=== PATIENT | male | born 1990 | race Asian ===

== ENCOUNTER 2022-09-09 11:27 | Inpatient (IN) | payer BC, SELFPAY ==
[~2022-09-09] VITALS: Ht 165.1 cm; Wt 67.0 kg
[2022-09-09] MEDS: NICOTINE 21MG/24HR 1 EA TRANSDERMAL TD SCH (09:00)
[2022-09-09 12:28] LABS: HEMATOCRIT 46.3 % (42.0-52.0); HEMOGLOBIN 15.5 g/dl (13.5-17.5); MEAN CORPUSCULAR HEMOGLOBIN 30.1 pg (27.0-33.0); MEAN CORPUSCULAR HGB CONC 33.5 g/dl (32.0-36.5); MEAN CORPUSCULAR VOLUME 89.9 fl (80.0-96.0); PLATELET COUNT, AUTOMATED 295 10^3/uL (150-450); RED BLOOD COUNT 5.15 10^6/uL (4.30-6.10); WHITE BLOOD COUNT 8.1 10^3/uL (4.0-10.0)
[2022-09-09 12:56] LABS: AMPHETAMINES LEVEL URINE NEGATIVE (NEGATIVE); BARBITURATES URINE NEGATIVE (NEGATIVE); BENZODIAZEPINES URINE NEGATIVE (NEGATIVE); COCAINE METABOLITE URINE NEGATIVE (NEGATIVE); ETHYL ALCOHOL (ETHANOL) 0.004 % (0.000-0.010); METHADONE URINE NEGATIVE (NEGATIVE); OPIATES URINE NEGATIVE (NEGATIVE); PHENCYCLIDINE URINE NEGATIVE (NEGATIVE)
[2022-09-09 12:58] LABS: ACETAMINOPHEN LEVEL < 2.0 UG/ML (10.0-20.0); ALBUMIN 4.5 G/DL (3.2-5.2); ALKALINE PHOSPHATASE 75 U/L (46-116); ALT/SGPT 32 U/L (7.0-40); AST/SGOT 19 U/L (<34); BILIRUBIN,DIRECT 0.1 MG/DL (<0.4); BILIRUBIN,TOTAL 0.4 MG/DL (0.3-1.2); BLOOD UREA NITROGEN 23 MG/DL (9-23); CALCIUM LEVEL 9.5 MG/DL (8.5-10.1); CARBON DIOXIDE LEVEL 27 MMOL/L (20-31); CHLORIDE LEVEL 107 MMOL/L (98-107); CREATININE FOR GFR 0.88 MG/DL (0.70-1.30); GLOMERULAR FILTRATION RATE > 60.0 (>60); GLUCOSE, FASTING 91 MG/DL (60-100); POTASSIUM SERUM 4.4 MMOL/L (3.5-5.1); SALICYLATE LEVEL < 3.0 MG/DL (<30); SODIUM LEVEL 140 MMOL/L (136-145); TOTAL PROTEIN 8.2 G/DL (5.7-8.2)
[2022-09-09 13:00] LABS: THYROID STIMULATING HORMONE 1.209 uIU/ML (0.55-4.78)
[2022-09-09 13:03] LABS: CANNABINOIDS URINE POSITIVE (NEGATIVE)
[2022-09-09] MEDS ORDERED: OMEG10002 PO (15:10)
[2022-09-09] MEDS ORDERED: HOME MED LIST COMPLETE! XX SCH (15:20)
[2022-09-09] MEDS ORDERED: diphenhydrAMINE 25MG CAP PO PRN (15:20)
[2022-09-09] MEDS ORDERED: IBUPROFEN 400MG TAB PO PRN (15:20)
[2022-09-09] MEDS ORDERED: MAALOX 30 ML SUSP *UDC PO PRN (15:20)
[2022-09-09] MEDS ORDERED: MOM 30ML SUSPENSION UDC PO PRN (15:20)
[2022-09-09] MEDS ORDERED: OLANZapine 5 MG TAB PO PRN (15:20)
[2022-09-09 16:33] VITALS: BP 155/83
[2022-09-09] MEDS: OMEGA-3 1000MG CAPSULE PO SCH (21:18)
[2022-09-10 06:45] VITALS: BP 141/84
[2022-09-10] MEDS: NICOTINE 21MG/24HR 1 EA TRANSDERMAL TD SCH (09:00)
[2022-09-10] MEDS: OMEGA-3 1000MG CAPSULE PO SCH ×2 (09:35→21:23)
[2022-09-10] MEDS ORDERED: INFLUENZA QUADRIVALENT PF VACCINE 0.5ML SYRINGE IM.IMMUN ONE (10:00)
[2022-09-10 17:35] VITALS: BP 133/64
[2022-09-10] MEDS: OLANZapine 5 MG TAB PO SCH (21:23)
[2022-09-10] MEDS: traZODone 50 MG TAB PO PRN (21:23)
[2022-09-11 05:56] VITALS: BP 135/78
[2022-09-11 07:01] LABS: CHOLESTEROL RISK RATIO 4.54 (<5); LDL CHOLESTEROL 92.2 MG/DL (<100)
[2022-09-11] MEDS: NICOTINE 21MG/24HR 1 EA TRANSDERMAL TD SCH (09:00)
[2022-09-11] MEDS: OMEGA-3 1000MG CAPSULE PO SCH ×2 (09:32→21:31)
[2022-09-11 18:00] VITALS: BP 140/82
[2022-09-11] MEDS: OLANZapine 5 MG TAB PO SCH (21:31)
[2022-09-12 06:45] VITALS: BP 121/71
[2022-09-12] MEDS: NICOTINE 21MG/24HR 1 EA TRANSDERMAL TD SCH (09:00)
[2022-09-12] MEDS: OMEGA-3 1000MG CAPSULE PO SCH ×2 (09:01→20:45)
[2022-09-12] MEDS: OLANZapine 5 MG TAB PO SCH (20:45)
[2022-09-13 06:38] VITALS: BP 124/75
[2022-09-13] MEDS: NICOTINE 21MG/24HR 1 EA TRANSDERMAL TD SCH (09:00)
[2022-09-13] MEDS: OMEGA-3 1000MG CAPSULE PO SCH ×2 (09:40→20:31)
[2022-09-13 16:05] VITALS: BP 130/90
[2022-09-13] MEDS: traZODone 50 MG TAB PO PRN (20:31)
[2022-09-13] MEDS: OLANZapine 10 MG TAB PO SCH (20:31)
[2022-09-13] MEDS ORDERED: OMEGA-3 1000MG CAPSULE PO SCH (21:00)
[2022-09-14 06:59] VITALS: BP 141/73
[2022-09-14] MEDS: OMEGA-3 1000MG CAPSULE PO SCH ×2 (08:26→20:47)
[2022-09-14] MEDS: NICOTINE 21MG/24HR 1 EA TRANSDERMAL TD SCH (08:26)
[2022-09-14 16:19] VITALS: BP 160/90
[2022-09-14] MEDS: OLANZapine 10 MG TAB PO SCH (20:46)
[2022-09-14] MEDS: traZODone 50 MG TAB PO PRN (20:46)
[2022-09-15 06:34] VITALS: BP 136/70
[2022-09-15] MEDS: NICOTINE 21MG/24HR 1 EA TRANSDERMAL TD SCH (08:41)
[2022-09-15] MEDS: OMEGA-3 1000MG CAPSULE PO SCH ×2 (08:42→20:03)
[2022-09-15 16:07] VITALS: BP 148/70
[2022-09-15] MEDS: traZODone 50 MG TAB PO PRN (20:03)
[2022-09-15] MEDS: OLANZapine 10 MG TAB PO SCH (20:03)
[2022-09-16 06:03] VITALS: BP 134/61
[2022-09-16] MEDS: OMEGA-3 1000MG CAPSULE PO SCH ×2 (08:38→20:16)
[2022-09-16] MEDS: NICOTINE 21MG/24HR 1 EA TRANSDERMAL TD SCH (08:39)
[2022-09-16] MEDS: traZODone 50 MG TAB PO PRN (20:15)
[2022-09-16] MEDS: OLANZapine 5 MG TAB PO SCH (20:16)
[2022-09-17 06:37] VITALS: BP 127/78
[2022-09-17] MEDS: NICOTINE 21MG/24HR 1 EA TRANSDERMAL TD SCH (08:23)
[2022-09-17] MEDS: OMEGA-3 1000MG CAPSULE PO SCH ×2 (08:23→20:13)
[2022-09-17 16:09] VITALS: BP 148/90
[2022-09-17] MEDS: ACETAMINOPHEN TAB 650MG DOSE (2X325MG) PO PRN (18:32)
[2022-09-17] MEDS: traZODone 50 MG TAB PO PRN (20:13)
[2022-09-17] MEDS: OLANZapine 5 MG TAB PO SCH (20:13)
[2022-09-18 06:23] VITALS: BP 133/83
[2022-09-18] MEDS: NICOTINE 21MG/24HR 1 EA TRANSDERMAL TD SCH (07:31)
[2022-09-18] MEDS: OMEGA-3 1000MG CAPSULE PO SCH ×2 (07:32→20:15)
[2022-09-18 16:07] VITALS: BP 142/70
[2022-09-18] MEDS: ACETAMINOPHEN TAB 650MG DOSE (2X325MG) PO PRN (18:08)
[2022-09-18] MEDS: OLANZapine 5 MG TAB PO SCH (20:15)
[2022-09-18] MEDS: traZODone 50 MG TAB PO PRN (20:15)
[2022-09-19 06:10] VITALS: BP 155/96
[2022-09-19] MEDS: NICOTINE 21MG/24HR 1 EA TRANSDERMAL TD SCH ×2 (08:42→14:09)
[2022-09-19] MEDS: OMEGA-3 1000MG CAPSULE PO SCH ×2 (08:43→20:13)
[2022-09-19] MEDS: ACETAMINOPHEN TAB 650MG DOSE (2X325MG) PO PRN (14:08)
[2022-09-19 15:36] VITALS: BP 184/99
[2022-09-19 15:38] VITALS: BP 138/92
[2022-09-19] MEDS: OLANZapine 5 MG TAB PO SCH (20:13)
[2022-09-20 06:20] VITALS: BP 132/76
[2022-09-20] MEDS: OMEGA-3 1000MG CAPSULE PO SCH ×2 (08:23→20:25)
[2022-09-20] MEDS: POLYVINYL ALCOHOL OPHTH SOLN 15ML (LIQUITEARS) OU PRN ×2 (08:23→13:09)
[2022-09-20] MEDS: NICOTINE 21MG/24HR 1 EA TRANSDERMAL TD SCH (08:25)
[2022-09-20 18:48] VITALS: BP 140/78
[2022-09-20] MEDS: OLANZapine 5 MG TAB PO SCH (20:25)
[2022-09-20] MEDS: traZODone 50 MG TAB PO PRN (20:25)
[2022-09-21 06:18] VITALS: BP 120/69
[2022-09-21] MEDS: NICOTINE 21MG/24HR 1 EA TRANSDERMAL TD SCH (08:22)
[2022-09-21] MEDS: OMEGA-3 1000MG CAPSULE PO SCH (08:22)
[2022-09-21] MEDS: POLYVINYL ALCOHOL OPHTH SOLN 15ML (LIQUITEARS) OU PRN ×2 (08:23→13:08)
[2022-09-21] MEDS ORDERED: TRAZ-252 PO (08:44)
[2022-09-21] MEDS ORDERED: NICO21PAT TD (08:44)
[2022-09-21] MEDS ORDERED: OLAN15TA13 PO (08:44)
[2022-09-21] MEDS ORDERED: OMEG10002 PO (08:44)
[2022-09-21] MEDS ORDERED: ARTIDRO2 OU (08:44)
== END 2022-09-21 14:09 | disposition home or self-care (01) | DRG 750 ==
LOC: M ED 11:27 → M ED INP 15:17 → M PSY 16:28
PROVIDERS: ADMIT Student in an Organized Health Care Education/Training Program; ATTEND Student in an Organized Health Care Education/Training Program
DX: F20.9 Schizophrenia, unspecified (principal); F31.9 Bipolar disorder, unspecified; F60.89 Other specific personality disorders; E78.00 Pure hypercholesterolemia, unspecified; K21.9 Gastro-esophageal reflux disease without esophagitis; F84.9 Pervasive developmental disorder, unspecified; F17.200 Nicotine dependence, unspecified, uncomplicated; Z62.810 Personal history of physical and sexual abuse in childhood; Z88.8 Allergy status to other drugs, medicaments and biological substances; Z89.421 Acquired absence of other right toe(s)